=== PATIENT | male | born 1950 | race Two or more races ===

== ENCOUNTER 2017-07-15 20:35 | Emergency (ER) | payer OTHER ==
[~2017-07-15] VITALS: Ht 170.2 cm; Wt 69.4 kg
[~2017-07-15 20:35] MED LIST: ZANTAC150 M3
[2017-07-15] MEDS ORDERED: GLIMEPIRIDE4 MG PO (20:45)
[2017-07-16] MEDS ORDERED: ZYNCOF 20-400120 ML PO (02:22)
[2017-07-16] MEDS ORDERED: SYMBICORT 16010.2 GM IH (02:22)
[2017-07-16] MEDS ORDERED: ALBUTEROL2.5 MG/3 M IH (02:23)
== END 2017-07-16 02:24 | disposition home or self-care (01) ==
LOC: ER 20:35
DX: J45.909 Unspecified asthma, uncomplicated (principal); J11.1 Influenza due to unidentified influenza virus with other respiratory manifestations

== ENCOUNTER 2019-02-15 11:03 | Emergency (ER) | payer OTHER ==
[~2019-02-15] VITALS: Ht 157.5 cm; Wt 71.2 kg
[~2019-02-15 11:03] MED LIST changes: +ALBUTEROL2.5 MG/3 M IH; +GLIMEPIRIDE4 MG PO; +SYMBICORT 16010.2 GM IH; +ZYNCOF 20-400120 ML PO
== END 2019-02-15 15:00 | disposition home or self-care (01) ==
LOC: ER 11:03
DX: J45.998 Other asthma (principal)